=== PATIENT | male | born 1970 | race African-American/Black ===

== ENCOUNTER 2018-08-10 07:20 | Outpatient (CLI) | payer BC ==
--- NOTE | 2018-08-10 09:43 | CT ---
CT ABDOMEN WITH AND WITHOUT IV CONTRAST: DATE: 08/10/2018. HISTORY: The patient reportedly had CT scan examination at [facility] 1 year ago with a right renal cysti c lesion noted. COMPARISON: None available. FINDINGS: There is calcified granuloma at the right lung base. There are linear bibasilar densities which may represent scarring and/or atelectasis. There is an increased density cystic lesion seen in the later al aspect mid portion right kidney measuring approximately 1.9 cm. This lesion is not well visualize d on precontrast imaging, and in the location of this cystic lesion, the attenuation coefficient sugg ests an increased density cystic lesion. No appreciable enhancement is present on the portal venous or delayed phases of imaging. There is no wall thickening or septation seen within this lesion. Fin dings are most suggestive of a hyperdense right renal cystic lesion, but direct compression with the prior study is recommended. The left kidney, liver, spleen, pancreas, and abdominal aorta demonstrate a normal CT appearance. No free fluid, fluid collection, or lymphadenopathy is seen in the abdomen. IMPRESSION: Findings most suggestive of a hyperdense Bosniak type II right renal cystic lesion. However, direct comparison with the prior study obtained from [facility] is recommended to ensure stability in s ize and appearance of this lesion. POS: JEANETTE
[2018-08-10] MEDS ORDERED: ISOVUE-370 76%-LOCM 1 ML ONE (11:21)
== END 2018-08-10 07:21 | disposition home or self-care (01) ==
LOC: BICCT 07:20
PROVIDERS: ATTEND Family Medicine
DX: N28.89 Other specified disorders of kidney and ureter (principal)
CPT/HCPCS: 74170

== ENCOUNTER 2019-05-31 09:26 | Outpatient (CLI) | payer BC ==
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
[2019-05-31] MEDS ORDERED: ISOVUE-370 76%-LOCM 1 ML ONE (12:00)
== END 2019-05-31 09:27 | disposition home or self-care (01) ==
LOC: BICCT 09:26
PROVIDERS: ATTEND Urology
DX: R31.29 Other microscopic hematuria (principal); N28.1 Cyst of kidney, acquired
CPT/HCPCS: 74178; Q9966

== ENCOUNTER 2020-03-30 08:11 | Emergency (ER) | payer BC, SELFPAY ==
[2020-03-30] MEDS ORDERED: Adacel (T-DAP) 0.5 ML SYRINGE ONE (09:05)
[2020-03-30] MEDS ORDERED: Acetaminophen 500 MG TAB ONE (09:05)
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
--- NOTE | 2020-03-30 09:28 | RAD ---
EXAM: XR Shoulder Rt 3 View STANDARD PROVIDED CLINICAL HISTORY: Pain FINDINGS: There is no evidence for fracture or other acute osseous abnormality. Alignment appears anatomic. Margo nt spaces appear preserved. Calcific peritendinitis is noted. IMPRESSION: No evidence for an acute osseous abnormality. If there is persistent clinical concern, conservative m anagement and follow-up imaging advised.
--- NOTE | 2020-03-30 09:29 | RAD ---
EXAM: XR Elbow Rt 4 View STANDARD PROVIDED CLINICAL HISTORY: Pain FINDINGS: There is no evidence for fracture or other acute osseous abnormality. Alignment appears anatomic. Margo nt spaces appear preserved. Osteophyte formation is seen about the elbow. No evidence for significant elbow joint capsular distention. IMPRESSION: No evidence for an acute osseous abnormality. If there is persistent clinical concern, conservative m anagement and follow-up imaging advised.
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
[2020-03-30] MEDS ORDERED: Bacitracin 1 PK ONE (09:47)
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
== END 2020-03-30 10:36 | disposition home or self-care (01) ==
LOC: ERS 08:11
DX: S63.502A Unspecified sprain of left wrist, initial encounter (principal); S40.012A Contusion of left shoulder, initial encounter; S40.011A Contusion of right shoulder, initial encounter; J84.9 Interstitial pulmonary disease, unspecified; S50.811A Abrasion of right forearm, initial encounter; V23.4XXA Motorcycle driver injured in collision with car, pick-up truck or van in traffic accident, initial encounter
CPT/HCPCS: 71046; 90471; 90715

== ENCOUNTER 2020-03-30 18:20 | Emergency (ER) | payer BC | END 2020-03-30 19:13 | disposition home or self-care (01) | LOC: ERS 18:20 | DX: S52.122A Displaced fracture of head of left radius, initial encounter for closed fracture (principal); V29.9XXA Motorcycle rider (driver) (passenger) injured in unspecified traffic accident, initial encounter | CPT/HCPCS: 29105 ==

== ENCOUNTER 2021-06-30 02:57 | Emergency (ER) | payer BC ==
[2021-06-30 04:46] LABS: Bacteria/HPF None Seen HPF (None Seen); Bilirubin Negative (Negative); Blood, Urine 1+ (Negative); Clarity Clear (Clear); Glucose, Urine (Dipstick) Normal (Negative); Ketone, Urine Negative (Negative); Leukocyte Negative Leu/uL (Negative); Nitrite Negative (Negative); Protein, Urine (Dipstick) Negative (Neg-Trace); RBC/HPF 0-3 HPF (0-3); Specific Gravity, Urine 1.025 (1.002-1.036); Squamous Epithelial 0-3 HPF (0-3); Urobilinogen Normal mg/dL (Less than 2); WBC/HPF 0-3 HPF (0-3); pH, Urine 5.5 (5.0-9.0)
[2021-06-30] MEDS ORDERED: Ibuprofen 200 MG TAB ONE (05:01)
[2021-06-30] MEDS ORDERED: Acetaminophen 500 MG TAB ONE (05:01)
== END 2021-06-30 06:41 | disposition home or self-care (01) ==
LOC: ERS 02:57
DX: M54.50 Low back pain, unspecified (principal)
CPT/HCPCS: 74176; 81003; 81015

== ENCOUNTER 2023-05-29 11:33 | Outpatient (CLI) | payer BC | END 2023-05-29 11:34 | disposition home or self-care (01) | LOC: BICRAD 11:33 | PROVIDERS: ATTEND Chiropractor | DX: M54.31 Sciatica, right side (principal); M47.816 Spondylosis without myelopathy or radiculopathy, lumbar region | CPT/HCPCS: 72110 ==